=== PATIENT | male | born 1990 | race Caucasian/White ===

== ENCOUNTER 2021-01-24 18:26 | Emergency (ER) | payer SELFPAY ==
--- OUTSIDE RECORDS SUMMARY | 2021-01-24 18:28 | XMS REPORT | Continuity of Care Document ---
:1990 Author Organization [facility] t Address [facility] [address] [place] [address] Care Team Providers Name Role Phone VU Attending Clinician Unavailable Problems This patient has no known problems. Allergies, Adverse Reactions, Alerts This patient has no known allergies or adverse reactions. Social History Smoking Status Start Date Stop Date Source Never smoker [facility] ([facility]) Medications Ordered Filled Start Stop Current Ordering Indication Dosage Frequency Signature Comments Components Source Medication Medication Date Date Medication? Clinician (SIG) Name Name Hydrocortis Hydrocortis Yes 25mg BID C [facility] Supp[facility] Suppository [facility] ([facility]) Vital Signs Vital Name Observation Time Observation Value Comments Source O2% BldC Oximetry 2018-08-26 01:10:00 98 % [facility] ([facility]) BP Systolic 2018-08-26 01:10:00 112 mm[Hg] [facility] ([facility]) BP Diastolic 2018-08-26 01:10:00 70 mm[Hg] [facility] ([facility]) Pulse Rate 2018-08-26 01:10:00 80 /min [facility] ([facility]) Respiratory Rate 2018-08-26 01:10:00 16 /min [facility] ([facility]F/[facility]) Body Temperature 2018-08-26 00:26:[address] [facility] ([facility]F/[facility]) Height 2018-08-26 00:26:[address] [facility] ([facility]) Weight Measured 2018-08-26 00:26:00 [facility] lbs [facility] ([facility]) BMI (Body Mass Index) 2018-08-26 00:26:00 32.5 kg/m2 [facility] ([facility]/[place]) Procedures This patient has no known procedures. Encounters Start End Encounter Admission Attending Care Care Encounter Source Date/Time Date/Time Type Type Clinicians Facility Department ID 2018-08-26 2018-08-26 OTHER SPEC VU, [facility] [id number] [facility] 00:25:00 01:10:00 DISEASES EDUAR teixeira HERRERA & , [address] [facility] ([facility]/ [facility] [place] [facility]/[place]) [place] , YUNG [id number] Results This patient has no known results.
[2021-01-24 19:16] LABS: Urine Blood 1+ (Negative); Urine Glucose Negative (Negative); Urine Protein Negative (Negative)
[2021-01-24] MEDS ORDERED: LORazepam 2 MG/ML VIAL ONE (19:33)
[2021-01-24 19:34] LABS: Barbiturates NEGATIVE (NEGATIVE); Benzodiazepines NEGATIVE (NEGATIVE); Cocaine NEGATIVE (NEGATIVE); METHAMPHETAM NEGATIVE (NEGATIVE); Methadone NEGATIVE (NEGATIVE); Opiates NEGATIVE (NEGATIVE); Phencyclidine NEGATIVE (NEGATIVE); THC Cannibis NEGATIVE (NEGATIVE)
[2021-01-24] MEDS ORDERED: NA CHLORIDE 0.9% 1,000 ML ONE (19:34)
[2021-01-24 19:48] LABS: Absolute Lymphocytes (CBC) 3.1 K/uL (0.7-4.9); Basophils % 0.5 % (0-1.3); Lymphocytes % 19.1 % (15.3-44.8); MPV 8.6 fL (7.6-11.3)
[2021-01-24 20:09] LABS: ALT/SGPT 43 U/L (12-78); AST/SGOT 17 U/L (15-37); Albumin 4.5 g/dL (3.4-5.0); Alkaline Phosphatase 96 U/L (45-117); BUN Blood Urea Nitrogen 14 mg/dL (7-18); Bicarbonate 23 mmol/L (21-32); Bilirubin Direct 0.1 mg/dL (0-0.2); Bilirubin Total 0.5 mg/dL (0.2-1.0); Glucose Level 97 mg/dL (74-106); Magnesium 1.9 mg/dL (1.8-2.4); NT PRO-BNP 11 pg/mL (<125); Potassium 3.5 mmol/L (3.5-5.1); Protein, Total 8.2 g/dL (6.4-8.2); Sodium Level 141 mmol/L (136-145); Troponin (Emerg Dept Use Only) < 0.02 ng/mL (0.0-0.045)
--- NOTE | 2021-01-24 20:11 | RAD REPORT ---
EXAM DESCRIPTION: Luly Single View01/24/2021 7:30 pm CLINICAL HISTORY: Shortness of breath COMPARISON: none FINDINGS: The lungs appear clear of acute infiltrate. The heart is normal size IMPRESSION: No acute abnormalities displayed
--- NOTE | 2021-01-24 21:25 | EDPHYS ---
Physician Documentation [facility] Name: Dank Couch Age: 30 yrs Sex: Male : 1990 Arrival Date: 01/24/2021 Time: 18:28 Bed 7 Private MD: ED Physician Talib Mi HPI: 01/24 19:15 This 30 yrs old Male presents to ER via Ambulatory with complaints of cp Breathing Difficulty. 19:15 The patient has shortness of breath at rest. Onset: The symptoms/episode began/occurred cp 2 day(s) ago. Duration: The symptoms are intermittent, with no pattern. 19:15 Associated signs and symptoms: Pertinent negatives: chest pain, productive cough, cp fever, rash. 19:15 Patient reports having intermittent episodes over past 2 days in which he starts cp feeling like his throat is tight, he becomes short of breath and has difficulty breathing. Patient reports episodes start suddenly and had episode prior to arrival while driving. Historical: - Allergies: 18:39 No Known Allergies; ph - PMHx: 18:39 None; ph - Immunization history:: Client reports having NOT received the Covid vaccine. - Social history:: Smoking status: Patient denies any tobacco usage or history of. Patient uses alcohol, on a daily basis. ROS: 19:20 Cardiovascular: Negative for chest pain, palpitations. cp 19:20 Constitutional: Negative for body aches, chills, poor PO intake. cp 19:20 Eyes: Negative for injury, pain, redness, and discharge. cp 19:20 ENT: Positive for tightness of throat, Negative for drainage from ear(s), ear pain, sore throat, difficulty swallowing, difficulty handling secretions. 19:20 Neck: Negative for pain with movement, pain at rest. 19:20 Respiratory: Positive for shortness of breath, at rest. Negative for cough, wheezing. 19:20 Abdomen/GI: Negative for abdominal pain, nausea, vomiting, and diarrhea. 19:20 Skin: Negative for rash. 19:20 Neuro: Negative for altered mental status, headache, weakness. 19:20 All other systems are negative. Exam: 19:23 ECG was reviewed by the Attending Physician. cp 19:25 Constitutional: The patient appears in no acute distress, alert, awake, cp non-diaphoretic, non-toxic, well developed, well nourished, anxious. 19:25 Head/Face: Normocephalic, atraumatic. cp 19:25 Eyes: Periorbital structures: appear normal, Pupils: equal, round, and reactive to light and accomodation, Extraocular movements: intact throughout, Conjunctiva: normal, no exudate, no injection, Sclera: no appreciated abnormality, Lids and lashes: appear normal, bilaterally. 19:25 ENT: External ear(s): are unremarkable, Nose: is normal, Mouth: Lips: moist, Oral mucosa: moist, Posterior pharynx: Airway: no evidence of obstruction, patent. 19:25 Neck: ROM/movement: is normal, is supple, without pain, no range of motions limitations. 19:25 Chest/axilla: Inspection: normal, Palpation: is normal, no crepitus, no tenderness. 19:25 Cardiovascular: Rate: normal, Rhythm: regular. 19:25 Respiratory: the patient does not display signs of respiratory distress, Respirations: labored breathing, is not present, shallow respirations, that is mild, Breath sounds: are clear throughout, no decreased breath sounds, no stridor, no wheezing. 19:25 Abdomen/GI: Exam negative for discomfort, distension, guarding, Inspection: abdomen appears normal. 19:25 Neuro: Orientation: to person, place \T\ time. Mentation: is normal, Cerebellar function: is grossly normal, Motor: moves all fours, strength is normal, Sensation: is normal, Gait: is steady, at a normal pace, without difficulty. Vital Signs: 18:37 BP 130 / 80; Pulse 71; Resp 22; Temp 98.2; Pulse Ox 100% on R/A; Weight 88.45 kg; ph Height 5 ft. 6 in. (167.64 cm); 21:28 BP 135 / 77; Pulse 73; Resp 20; Pulse Ox 95% ; ea 18:37 Body Mass Index 31.47 (88.45 kg, 167.64 cm) ph MDM: 18:58 Patient medically screened. cp 19:00 Differential diagnosis: Anxiety Reaction asthma, Pneumothorax reactive airway disease, cp allergic reaction. 21:24 Data reviewed: vital signs, nurses notes, lab test result(s), EKG, radiologic studies, cp plain films. 21:24 Test interpretation: by ED physician or midlevel provider: ECG, plain radiologic cp studies. Counseling: I had a detailed discussion with the patient and/or guardian regarding: the historical points, exam findings, and any diagnostic results supporting the discharge/admit diagnosis, lab results, radiology results, the need for outpatient follow up, a family practitioner, to return to the emergency department if symptoms worsen or persist or if there are any questions or concerns that arise at home. Response to treatment: the patient's symptoms have markedly improved after treatment, VSS. Patient observed resting comfortably in exam room. Will discharge to home for continued monitoring. 01/24 18:59 Order name: Basic Metabolic Panel 01/24 18:59 Order name: CBC with Diff cp 01/24 18:59 Order name: LFT's; Complete Time: 20:19 cp 01/24 20:19 Interpretation: Normal except: GLOB 3.7. cp 01/24 18:59 Order name: Magnesium; Complete Time: 20:19 cp 01/24 18:59 Order name: NT PRO-BNP; Complete Time: 20:19 cp 01/24 18:59 Order name: Troponin (emerg Dept Use Only); Complete Time: 20:19 cp 01/24 18:59 Order name: ETOH Level; Complete Time: 20:19 cp 01/24 18:59 Order name: UDS; Complete Time: 19:59 cp 01/24 20:00 Interpretation: Reviewed. cp 01/24 18:59 Order name: Basic Metabolic Panel; Complete Time: 20:19 EDMS 20 20:19 Interpretation: Normal except: CL 110. 01/24 18:59 Order name: CBC with Automated Diff; Complete Time: 19:59 EDMS 01/24 19:59 Interpretation: Normal except: WBC 16.20; NEUT A 11.8. cp 01/24 19:16 Order name: Urine Dipstick-Ancillary; Complete Time: 20:02 EDMS 01/24 20:02 Interpretation: Normal except: UBLD 1+. cp 01/24 20:35 Order name: SARS-COV-2 RT PCR; Complete Time: 21:16 EDMS 01/24 21:16 Interpretation: Within normal limits: SARSCOV2 RT PCR NEGATIVE. cp 01/24 18:59 Order name: XRAY Chest (1 view); Complete Time: 20:19 cp 01/24 18:59 Order name: EKG; Complete Time: 19: cp 01/24 18:59 Order name: Cardiac monitoring; Complete Time: cp 01/24 18:59 Order name: EKG - Nurse/Tech; Complete Time: : cp 01/24 18:59 Order name: IV Saline Lock; Complete Time: : cp 01/24 18:59 Order name: Labs collected and sent; Complete Time: : cp 01/24 18:59 Order name: O2 Per Protocol; Complete Time: cp 01/24 18:59 Order name: O2 Sat Monitoring; Complete Time: : cp EC: Rate is 71 beats/min. Rhythm is regular. AR interval is normal. QRS interval is cp prolonged at 102 msec. QT interval is normal. T waves are Inverted in leads III, aVR. Interpreted by me. Reviewed by me. Administered Medications: : Drug: Ativan (LORazepam) 0.5 mg Route: IVP; Site: right antecubital; ak2 21:02 Follow up: Response: No adverse reaction ea 20:22 Drug: NS 0.9% 500 ml Route: IV; Rate: bolus; Site: left antecubital; ak2 21:35 Follow up: Response: No adverse reaction; IV Status: Completed infusion; IV Intake: ea 500ml Disposition: 01/25 07:05 Co-signature as Attending Physician, Talib Mi MD I agree with the assessment and kdr plan of care. Disposition Summary: 01/24/21 21:24 Discharge Ordered Location: Home cp Problem: new cp Symptoms: have improved cp Condition: Stable cp Diagnosis - Anxiety disorder, unspecified cp Followup: cp - With: Private Physician - When: 1 - 2 days - Reason: Recheck today's complaints Discharge Instructions: - Discharge Summary Sheet cp - Panic Attack cp - Generalized Anxiety Disorder, Adult cp Forms: - Medication Reconciliation Form cp - Thank You Letter cp - Antibiotic Education cp - Prescription Opioid Use cp Prescriptions: - Ativan 0.5 mg Oral Tablet - take 1 tablet by ORAL route every 12 hours As needed; 10 tablet; Refills: 0, cp Product Selection Permitted Signatures: Dispatcher [facility] Talib Barger MD MD [facility] Esperanza Espinal RN RN ph Nilda, Gerardo, DHAVAL PA cp [place], PalmerShawnee Griffin RN, ea Corrections: (The following items were deleted from the chart) 01/24 18:40 18:39 Allergies: No Known Allergies; ph ph 18:40 18:39 Home Meds: None; ph ph 18:40 18:39 PMHx: Unable to Obtain; ph ph 18:40 18:39 PMHx: Unable to Obtain; ph ph 19:31 19:01 CORONAVIRUS+MR.LAB.BRZ ordered. EDMS EDMS
--- NOTE | 2021-01-24 21:25 | ER ---
Nurse's Notes [facility] Name: Dank Couch Age: 30 yrs Sex: Male : 1990 Arrival Date: 01/24/2021 Time: 18:28 Bed 7 Private MD: Diagnosis: Anxiety disorder, unspecified Presentation: 01/24 18:37 Chief complaint: Patient states: SOB and "throat feeling tight" x 2 days, states, " I ph was driving home from work today and my throat felt tight and I started hyperventilating." Pt denies fever, cough, or other symptoms. Coronavirus screen: difficulty breathing, Client presents with at least one sign or symptom that may indicate coronavirus-19. Standard/surgical mask placed on the client. Provider contacted for isolation considerations. Ebola Screen: No symptoms or risks identified at this time. Initial Sepsis Screen: Does the patient meet any 2 criteria? No. Patient's initial sepsis screen is negative. Does the patient have a suspected source of infection? No. Patient's initial sepsis screen is negative. Risk Assessment: Do you want to hurt yourself or someone else? Patient reports no desire to harm self or others. Onset of symptoms was January 24, 2021. 18:37 Method Of Arrival: Ambulatory ph 18:37 Acuity: HÉCTOR 3 ph Triage Assessment: 19:20 General: Appears in no apparent distress. Behavior is calm, cooperative. Pain: Denies ak2 pain. Neuro: No deficits noted. Cardiovascular: No deficits noted. Respiratory: No deficits noted. Respiratory: No deficits noted. 19:22 Respiratory: Onset: The symptoms/episode began/occurred. ak2 Historical: - Allergies: 18:39 No Known Allergies; ph - PMHx: 18:39 None; ph - Immunization history:: Client reports having NOT received the Covid vaccine. - Social history:: Smoking status: Patient denies any tobacco usage or history of. Patient uses alcohol, on a daily basis. Screenin:21 Abuse screen: Denies threats or abuse. Denies injuries from another. Nutritional ak2 screening: No deficits noted. Tuberculosis screening: No symptoms or risk factors identified. Fall Risk None identified. Assessment: 19:21 General: Appears in no apparent distress. Pain: Denies pain. Neuro: No deficits noted. ak2 Cardiovascular: No deficits noted. Rhythm is sinus rhythm. Respiratory: No deficits noted. 19:21 Respiratory: Airway is patent Respiratory effort is even, unlabored, Breath sounds are ak2 clear. 20:30 Reassessment: Patient and/or family updated on plan of care and expected duration. Pain ea level reassessed. Patient is alert, oriented x 3, equal unlabored respirations, skin warm/dry/pink. 21:29 Reassessment: Patient and/or family updated on plan of care and expected duration. Pain ak2 level reassessed. Vital Signs: 18:37 BP 130 / 80; Pulse 71; Resp 22; Temp 98.2; Pulse Ox 100% on R/A; Weight 88.45 kg; ph Height 5 ft. 6 in. (167.64 cm); 21:28 BP 135 / 77; Pulse 73; Resp 20; Pulse Ox 95% ; ea 18:37 Body Mass Index 31.47 (88.45 kg, 167.64 cm) ph ED Course: 18:28 Patient arrived in ED. ds1 18:39 Triage completed. ph 18:40 Arm band placed on Patient placed in an exam room. ph 18:51 Gerardo Munguia PA is PHCP. cp 18:51 Talib Mi MD is Attending Physician. cp 19:21 Patient has correct armband on for positive identification. ak2 19:22 No provider procedures requiring assistance completed. ak2 19:24 Shawnee Arce, RN is Primary Nurse. ea 19:30 XRAY Chest (1 view) In Process Unspecified. EDMS 21:34 IV discontinued, intact, bleeding controlled, No redness/swelling at site. Pressure ea dressing applied. Administered Medications: 19:20 Drug: Ativan (LORazepam) 0.5 mg Route: IVP; Site: right antecubital; ak2 21:02 Follow up: Response: No adverse reaction ea 20:22 Drug: NS 0.9% 500 ml Route: IV; Rate: bolus; Site: left antecubital; ak2 21:35 Follow up: Response: No adverse reaction; IV Status: Completed infusion; IV Intake: ea 500ml Intake: 21:35 IV: 500ml; Total: 500ml. ea Outcome: 21:24 Discharge ordered by MD. cp 21:34 Discharged to home ambulatory, with family. ea 21:34 Condition: stable 21:34 Discharge instructions given to patient, Instructed on discharge instructions, follow up and referral plans. medication usage, Demonstrated understanding of instructions, follow-up care, medications, Prescriptions given X 1. 21:35 Patient left the ED. kiran Signatures: Dispatcher [employer] [facility] Tash Mckenna ds1 Esperanza Espinal, RN RN ph Gerardo Munguia PA PA cp Antunez, Elena, RN RN Palmer Philippe2 Corrections: (The following items were deleted from the chart) 18:40 18:39 Allergies: No Known Allergies; ph ph 18:40 18:39 Home Meds: None; ph ph 18:40 18:39 PMHx: Unable to Obtain; ph ph 18:40 18:39 PMHx: Unable to Obtain; ph ph
[2021-01-24 22:32] VITALS: BP 135/77; O2SAT 95
[2021-01-24 22:36] VITALS: TEMP 98.2
--- NOTE | 2021-01-25 10:42 | EKG ---
Test Date: 2021-01-24 Test Time: 19:17:25 Systematic Theology Professor: MEASUREMENT RESULTS: Intervals: Rate: 71 PA: 152 QRSD: 102 QT: 418 QTc: 454 [place]: P: 19 PA: 152 QRS: 28 T: 35 INTERPRETIVE STATEMENTS: Sinus rhythm with marked sinus arrhythmia Otherwise normal ECG No previous ECG available for comparison Electronically Signed On 01-25-21 10:41:08 CDT by Roque Alba
== END 2021-01-24 21:35 | disposition home or self-care (01) ==
LOC: ER 18:26
DX: F41.9 Anxiety disorder, unspecified (principal); Z20.822 Contact with and (suspected) exposure to COVID-19
CPT/HCPCS: 36415; 71045; 80048; 80076; 80307; 80320; 81003; 83735; 83880; 84484; 85025; 93005; 96361; 96374; 99284; J7030; U0003